=== PATIENT | male | born 1955 | race Caucasian/White ===

== ENCOUNTER 2025-03-09 16:20 | Emergency (ER) | payer OTHER, SELFPAY ==
--- NOTE | 2025-03-09 16:34 | ED.ANIMALBIT ---
HPI - Animal Bite General Chief Complaint: Animal Bite Stated Complaint: left fingers, rt leg, rt arm dog attack Time Seen by Provider: 03/09/25 18:06 Source: patient Limitations: no limitations History of Present Illness ED Provider: Tierney Dorantes PA-C HPI narrative: 69-year-old male who presents emergency department for evaluation of dog bites. He sustained laceration to 3rd digit left hand, right 3rd digit, right wrist, and puncture to right lower leg. Per surgical corsetier, patient's cousin, dog is up-to-date on vaccinations. Patient unaware of date of last tetanus vaccination. Related Data Previous Rx's ?Medication ?Instructions ?Recorded amoxicillin 875 mg-potassium 1 tab PO Q12H #19 tabs 03/09/25 clavulanate 125 mg tablet oxycodone 5 mg tablet 5 mg PO Q6H PRN pain #12 tabs 03/09/25 Allergies Allergy/AdvReac Type Severity Reaction Status Date / Time No Known Allergies Allergy Verified 03/09/25 16:37 Review of Systems Review of Systems: Yes all other systems are reviewed and are negative Constitutional: Constitutional: Denies fatigue and Denies fever(s) Cardiovascular: Cardiovascular: Denies chest pain Musculoskeletal: Musculoskeletal: Reports arthralgias and Reports joint swelling Integumentary/Breasts: Skin/Breast: Reports erythema and Reports wounds Endocrine: Endocrine: Denies fatigue [facility] Past Medical History Attestation statement: The following information was validated with the patient. Social History Social History Advance Directives: No Advance Directives Information Provided: No Physical Exam ED Vital Signs: Vital Signs - 24 hr 03/09/25 16:35 03/09/25 16:51 03/09/25 20:03 Temperature 97.6 F 98.1 F Pulse Rate 91 81 88 Respiratory Rate 18 16 20 Blood Pressure 96/58 L 199/71 H 134/79 Pulse Oximetry 97 98 98 Oxygen Delivery Method Room Air Room Air Room Air BMI result Body Mass Index 30.4 Const Other: Alert Orientation/consciousness: patient oriented x3 Resp Effort & Inspection: normal respiratory effort Cardio Other: Normal peripheral perfusion Skin Other: Warm dry no rash Neuro General: patient oriented x3, gait normal, no focal motor deficits and CN's II-XI intact bilaterally Extrem Other: Multiple wounds noted. Irregular laceration noted over dorsum of right forearm, overall approximately measures 5 cm in length, it is deep to subcu tissue some of the edges are macerated with overlying ecchymosis. 3 cm linear laceration that is superficial over the dorsum of the right 3rd digit, no longer bleeding. Bite wound noted over left hand along the palmar aspect in relation to the left 3rd digit at the MCP, tissue is absent down to subcutaneous tissue, not currently bleeding. Puncture wound noted over lateral right ankle not bleeding. Numerous excoriations from the dog's teeth noted over bilateral hands Psych Other: Cooperative Course Course Course Narrative: This is an RME performed by Leonarda Mackey BARREL ASSEMBLY INSPECTOR: Additional HPI, ROS, PE not included below will be deferred to primary provider. Patient is a 69-year-old male who presents emergency department for evaluation. He sustained bite from a dog to digits of the left hand, right 3rd digit, right wrist, and right lower leg. Per surgical corsetier, damien cousin, dog is up-to-date on vaccinations no recent ill like symptoms. Patient unaware of date of last tetanus vaccination. The dog is typically contained, but he did not verify before entering the home resulted in the Dog attacking him. Near-syncope in triage when attempting to visualize wounds, diaphoretic, nausea, initial BP reading of 96/58 on arrival, patient brought back to main ED bed 23. Consultations Consultation #1: per [facility], she states to place a referral in the office we will reach out to the patient, typically they are seen within a week. Time: 18:33 Medications Administered Discontinued Medications Generic Name Dose Route Start Last Admin Trade Name Freq PRN Reason Stop Dose Admin Amoxicillin/Clavulanate Potassium 875 mg 03/09/25 18:24 03/09/25 19:40 Amoxicillin/Potassium Clav 875 Mg Tablet PO 03/09/25 18:25 875 mg ONCE ONE Administration Diphtheria/Tetanus/Acell Pertussis 0.5 ml 03/09/25 16:47 03/09/25 17:27 Diphth,Pertus(Acell),Tet Adult 0.5 Ml Syringe IM 03/09/25 16:48 Not Given .ONCE ONE Lidocaine/Epinephrine 20 ml 03/09/25 18:24 03/09/25 19:45 Lidocaine Hcl 1%/Epi 1:100,000 20 Ml Vial INFILTRATI 03/09/25 18:25 Not Given ONCE ONE Lidocaine/Epinephrine 20 ml 03/09/25 18:47 03/09/25 19:45 Lidocaine Hcl 1%/Epi 1:100,000 20 Ml Vial INFILTRATI 03/09/25 18:48 Not Given ONCE ONE Oxycodone HCl 10 mg 03/09/25 20:08 03/09/25 20:26 Oxycodone Hcl Immed Release 5 Mg Tablet PO 03/09/25 20:09 10 mg ONCE ONE Administration Medical Decision Making Medical Decision Making MDM Narrative: 69-year-old male who presents emergency department for evaluation of dog bites. He sustained laceration to 3rd digit left hand, right 3rd digit, right wrist, and puncture to right lower leg. Per surgical corsetier, patient's cousin, dog is up-to-date on vaccinations. Patient unaware of date of last tetanus vaccination. No relevant chronic issues History: Per patient I have considered the following differential diagnoses: Bite wound, laceration, excoriation, avulsion Plan: The patient has multiple wounds that need to be repaired, imaging not required. We will place on Augmentin updating tetanus. We will provide the patient with our hand surgeons contact. Lab Data Labs: Lab Results 03/09/25 Range/Units 16:47 POC Glucose 129 H (60-115) mg/dL Procedures Laceration Laceration 1: Site: hand Side (If applicable): right Size (cm): 3 Description: linear Depth: simple, single layer Local Anesthetic: lidocaine 1% and with epi Amount of anesthesia used (mL): 2 Pre-repair: irrigated extensively Skin layer closed with: nylon Size (cm): 4-0 Number of sutures: 7 Technique: simple, interrupted Laceration 2: Site: upper extremity Side (If applicable): right Size (cm): 5 Description: irregular Depth: simple, single layer Local Anesthetic: with epi Amount of anesthesia used (mL): 10 Pre-repair: irrigated extensively Skin layer closed with: nylon Size (cm): 3-0 Number of sutures: 10 Technique: simple, interrupted Discharge Plan Discharge Clinical Impression: Laceration of right forearm, Laceration of finger of right hand, Dog bite of left hand Patient Disposition: Home, Self-Care Instructions: Animal Bite (ED), Laceration (ED), Finger Laceration (ED) Additional Instructions: Ten stitches were used to repair the laceration of the right forearm. Seven stitches were used to repair the wound on the right finger. The stitches can be removed in 7 days, they can either be removed by primary care or you can return to the emergency room for removal. Be sure to take the Augmentin as directed, complete the course of antibiotics. You should take a probiotic, this will help to prevent diarrhea. Take the oxycodone as needed for pain. You can alternate with [id number] Tylenol 1000 mg taken every 8 hours with food. I am providing you with a contact for our hand surgeon, they should reach out to you, but I would call Monday to make an appointment. Prescriptions: New oxycodone 5 mg tablet 5 mg PO Q6H PRN (Reason: pain) Qty: 12 0RF Rx Instructions: Partial Fill upon patient request. amoxicillin-pot clavulanate 875-125 mg tablet 1 tab PO Q12H Qty: 19 0RF Referrals: Tata Benedict MD [Physician] - (dog bite left hand, palmar aspect, large area of tissue absent, deep to subcutaneous layer) Print Language: Kinyarwanda
[2025-03-09 16:35] VITALS: BP 96/58; PULSE 91; RESP 18; TEMP 36.4; O2SAT 97; BMI 30.4
--- NOTE | 2025-03-09 16:48 | ECG_ITS ---
Test Reason : dizzness Blood Pressure : */* mmHG Vent. Rate : 77 BPM Atrial Rate : 77 BPM P-R Int : 196 ms QRS Dur : 106 ms QT Int : 390 ms P-R-T Axes : 62 66 65 degrees QTcB Int : 441 ms Normal sinus rhythm Incomplete right bundle branch block Borderline ECG When compared with ECG of 09-Apr-2011 03:39, No significant changes seen Referred By: Brittni Mackey Electronically Signed By: Phil Domingo
[2025-03-09 16:50] LABS: Glucose, Whole Blood 129 mg/dL (60-115)
[2025-03-09 16:51] VITALS: BP 199/71; PULSE 81; RESP 16; O2SAT 98
--- NOTE | 2025-03-09 16:52 | PC.NURSE ---
while taking down dressings in triage pt became very diaphoretic and pale. stated he might pass out. Was able to maintain consciousness and was placed in stretcher and brought to ED23. Skin returned to PWD and NSR on monitor. wound left 3rd digit is deep and bleeding.
--- NOTE | 2025-03-09 17:10 | PC.NURSE ---
PT bit by cousins [place]ian cattle dog, pt thought dog was in crate when he went inside to go to the bathroom and the dog was not, dog proceeded to attack pt, the dog was an [place] cattle dog of the cousin up to date on shots, PT refused tetanus update because he received it in 2018 and said he would get a new one when due. PT got bit in the left hand, right LE,and right forearm, right hand. Pictures provided below after wounds were cleaned. Right forearm (pic below) Right LE (pic below) Left Hand (pic below) Right Hand (pic below)
[2025-03-09] MEDS: Amoxicillin/Potassium Clav 875 MG TABLET PO (19:40)
[2025-03-09 20:03] VITALS: BP 134/79; PULSE 88; RESP 20; TEMP 36.7; O2SAT 98
[2025-03-09] MEDS: oxyCODONE HCl Immed Release 5 MG TABLET 10 MG PO (20:26)
[2025-03-09 21:38] VITALS: BP 134/79; PULSE 88; RESP 20; TEMP 36.7; O2SAT 98
== END 2025-03-09 21:39 | disposition home or self-care (01) ==
PROVIDERS: Emergency Provider Emergency Medicine; PCP Nurse Practitioner Family
DX: S51.811A Laceration without foreign body of right forearm, initial encounter (principal); S61.213A Laceration without foreign body of left middle finger without damage to nail, initial encounter; S61.212A Laceration without foreign body of right middle finger without damage to nail, initial encounter; S81.831A Puncture wound without foreign body, right lower leg, initial encounter; I45.10 Unspecified right bundle-branch block; R42 Dizziness and giddiness; R94.31 Abnormal electrocardiogram [ECG] [EKG]; W54.0XXA Bitten by dog, initial encounter; Y93.9 Activity, unspecified; Y92.9 Unspecified place or not applicable; Y99.8 Other external cause status
CPT/HCPCS: 12004; 82947; 93005; 99284

== ENCOUNTER → 2025-03-09 16:48 | Outpatient (BNV) | payer SELFPAY | PROVIDERS: Emergency Provider Emergency Medicine; PCP Nurse Practitioner Family; Visit Provider Internal Medicine Cardiovascular Disease | DX: I45.10 Unspecified right bundle-branch block (principal) | CPT/HCPCS: 93010 ==

== ENCOUNTER 2025-03-12 09:33 | Outpatient (AMB) | payer MEDICARE, SELFPAY ==
[2025-03-12 09:53] VITALS: BMI 30.3
--- NOTE | 2025-03-12 09:53 | MHC.OFFVIS ---
Vital Signs 03/12/25 09:53 Height 5 ft 8 in Weight 199 lb BMI 30.3 Intake Visit Reasons: ED Follow up RT forearm,finger laceration Intake Note: Jimy is a 69 year old right hand dominant male who presents today for a Emergency Room follow up of his Right wrist and Right Middle Finger. Patient reports that he was attacked by a dog on Monday03/09/25. Patient reports that he was attacked by a dog which affected his right wrist , right middle and pointer fingers as well as left middle and ring finger and right lower extremity. He was seen at [facility] after the incident where he relieved sutures to the wrist and middle finger. There is a chunk of the finger missing that was irrigated and dressed with antibiotic pad. He was placed on Abx in the ED - Amoxicillin which he is currently taking. He is also taking Oxycodone 5mg which is helping his pain. Denies numbness and tingling. Allergies No Known Allergies Allergy (Verified 03/12/25 09:59) HPI HPI ED Follow up RT forearm,finger laceration: Details: Jimy is a 69 year old right hand dominant male who presents today for a Emergency Room follow up of his Right wrist and Right Middle Finger. Patient reports that he was attacked by a dog on Monday03/09/25. Patient reports that he was attacked by a dog which affected his right wrist , right middle and pointer fingers as well as left middle and ring finger and right lower extremity. He was seen at [facility] ED after the incident where he relieved sutures to the wrist and middle finger. There is a chunk of the finger missing that was irrigated and dressed with antibiotic pad. He was placed on Abx in the ED - Amoxicillin which he is currently taking. He is also taking Oxycodone 5mg which is helping his pain. Denies numbness and tingling. [facility] Social History (Updated 03/12/25 @ 10:00 by Catie Villeda CMA) Current occupational status: retired Review of Systems Const All systems reviewed & are unremarkable except as noted in HPI and below Physical Exam Vital Signs: BMI result Body Mass Index 30.3 Extrem Other: Patient is alert, oriented, and in no acute distress. Neuro: Normal sensation of the tips of all digits of bilateral hands Vascular: Cap refill brisk Pain: Tenderness to palpation about laceration and wound sites Some pain with range of motion of bilateral hands ROM: Patient is able to make a closed fist with the right hand and extend all digits of the right hand fully and without difficulty Some limited range of motion of the left hand, primarily the middle finger, secondary to large area of skin loss over the volar proximal phalanx of the left middle finger. However, patient is able to actively flex and extend at all joints of the digits of the left hand Skin: Well approximated and well healing laceration on right forearm dorsal aspect Large area of skin loss noted over the proximal volar phalanx of the left middle finger Small abrasions noted on the distal and ulnar aspect of the left ring finger, there is noted to be a little bit of purulent drainage from the most distal aspect with mild surrounding erythema Small abrasions noted on both the middle and ring fingers of the right hand, no redness, drainage, or evidence of infection Psych: Appears grossly normal Affect normal Attitude cooperative Assessment & Plan Assessment & Plan (1) Dog bite of left hand: Code(s): S61.452A - Open bite of left hand, initial encounter; W54.0XXA - Bitten by dog, initial encounter Category: Medical (2) Laceration of finger of right hand: Code(s): S61.219A - Laceration without foreign body of unspecified finger without damage to nail, initial encounter Category: Medical (3) Laceration of right forearm: Code(s): S51.811A - Laceration without foreign body of right forearm, initial encounter Category: Medical Plan 1. Dog bite to both hands With significant skin loss to volar left middle finger Evidence of infection of small laceration on left ring finger Patient is educated about this condition Patient is educated about the typical recovery course Dr. Benedict is available to see the patient with me in clinic today, and a collaborative treatment plan was formed: At this time, small laceration on left ring finger is reopened to allow drainage of any purulence that has accumulated At this time, Dr. Benedict does not feel that skin graft is necessary, and that the wound may heal on its own However, it may be necessary if the wound does not begin to show evidence of healing Antibiotics refilled Patient is advised on daily dressing changes with Xeroform, antibiotic ointment Patient is advised that he should wash the area with soap and water in the sink or shower Follow-up early next week for wound check Medications: Refilled amoxicillin-pot clavulanate 875-125 mg 1 tab PO Q12H 20 tabs 0RF amoxicillin-pot clavulanate 875-125 mg 1 tab PO Q12H 20 tabs 0RF Coding Level of Care Code New Pt Level 3 (20061) Complex EM visit Add On G2211 Diagnoses Dog bite of left hand S61.452A; W54.0XXA Laceration of finger of right hand S61.219A Laceration of right forearm S51.811A
--- OUTSIDE RECORDS SUMMARY | 2025-03-12 10:15 | XMS_ITS | Clinical Summary ---
Author Organization [facility] ity Address [id number] [place] [id number] Care Team Providers Care Baggage Handling Supervisor Name Role Phone Unavailable Primary Care Provider Unavailabl e Social History Tobacco Use Types Packs/Day Years Used Date Smoking Tobacco: Never Assessed Sex and Gender Information Value Date Recorded Sex Assigned at Not on file Legal Sex Male 8:05 AM EST Gender Identity Not on file Sexual Orientation Not on file Plan of Treatment Health Maintenance Due Date Last Done Comments DTaP,Tdap,and Td Vaccines (1 - Tdap) 1976 Pneumococcal Vaccine: 50+ Ye ars (1 of 1 - PCV) 2007 Zoster Vaccines (1 of 2) 2007 Abdominal Aortic Aneurysm (A AA) Screen 06/11/2024 Cholesterol Screening (Lipid Panel) 06/11/2024 Colorectal Cancer Screening: Colonoscopy 06/11/2024 Depression Screening 06/11/2024 Falls Risk Assessment 06/11/2024 Hepatitis C Screening 06/11/2024 Social Influencers of Health Screening 06/11/2024 COVID-19 Vaccine (1 - 2023-2 5 season) 2024 Influenza Vaccine (Season Ended) 2025 RSV Immunization Adult Patie nts (1 - 1-dose 75+ series) 2032 HIB Vaccines Aged Out No longer eligi ble based on patient's age to complete this topic HPV Vaccines Aged Out No longer eligi ble based on patient's age to complete this topic Hepatitis A Vaccines Aged Out No long er eligible based on patient's age to complete this topic Hepatitis B Vaccines Aged Out No long er eligible based on patient's age to complete this topic IPV Vaccines Aged Out No longer eligi ble based on patient's age to complete this topic MMR Vaccines Aged Out No longer eligi ble based on patient's age to complete this topic Meningococcal ACWY Vaccine Aged Out N o longer eligible based on patient's age to complete this topic Meningococcal B Vaccine Aged Out No l onger eligible based on patient's age to complete this topic RSV Immunization Patients Un ericka 20 months Aged Out No longer eligible b ased on patient's age to complete this topic Varicella Vaccines Aged Out No longer eligible based on patient's age to complete this topic
== END 2025-03-12 11:50 | disposition home or self-care (01) ==
LOC: HO.HOS 09:33
PROVIDERS: PCP Nurse Practitioner Family
DX: S61.452A Open bite of left hand, initial encounter (principal); W54.0XXA Bitten by dog, initial encounter; S61.219A Laceration without foreign body of unspecified finger without damage to nail, initial encounter; S51.811A Laceration without foreign body of right forearm, initial encounter
CPT/HCPCS: 99203; G2211

== ENCOUNTER → 2025-03-12 09:33 | Outpatient (BNVA) | payer MEDICARE, SELFPAY | PROVIDERS: PCP Nurse Practitioner Family | DX: S61.452D Open bite of left hand, subsequent encounter (principal); S61.212D Laceration without foreign body of right middle finger without damage to nail, subsequent encounter; S51.811D Laceration without foreign body of right forearm, subsequent encounter; W54.0XXD Bitten by dog, subsequent encounter; Z79.2 Long term (current) use of antibiotics; Z79.891 Long term (current) use of opiate analgesic | CPT/HCPCS: 99202 ==

== ENCOUNTER 2025-03-18 08:48 | Outpatient (AMB) | payer MEDICARE, SELFPAY ==
[2025-03-18 08:57] VITALS: BMI 30.3
--- NOTE | 2025-03-18 08:57 | A.OFFVIS_ITS ---
Vital Signs 03/18/25 08:57 Height 5 ft 8 in Weight 199 lb BMI 30.3 Intake Visit Reasons: OV- R wrist, R Fingers Lac DOI 03/09/25 Intake Note: Jimy 69 yr old male presents today for his follow up visit for his right arm, ring finger and middle finger laceration s/p dog bite from 03/09/25 for his removal of sutures. States he is doing well and is ready to have his sutures removed. Allergies No Known Allergies Allergy (Verified 03/18/25 09:02) HPI HPI OV- R wrist, R Fingers Lac DOI 03/09/25: Details: Jimy is a 69 year old right hand dominant man who presents for a follow up of his bilateral hand dog bite wounds, DOI: 03/09/25. He sustained bites to bilateral hands, the right forearm, and his lower extremity. His right hand & forearm were sutured in the ED. He is here for a wound check & suture removal. He says he is doing better, continues to have some pain & itching where his fingers are healing. He has been taking his Abx as instructed, and performing dressing changes at home, as instructed. He says his sensation is normal to all digits. ON LICENSE OF [facility] Medical History (Updated 03/18/25 @ 09:09 by Jose Bobby) Infection of left hand due to bite Social History Current occupational status: retired Review of Systems Const All systems reviewed & are unremarkable except as noted in HPI and below Physical Exam Vital Signs: BMI result Body Mass Index 30.3 Const General: cooperative, healthy appearing and no acute distress Orientation/consciousness: patient oriented x3 HEENT Head: Yes normocephalic and Yes atraumatic Eyes EOM: EOMs intact bilaterally Resp Effort & Inspection: normal respiratory effort and able to speak in complete sentences Cardio Jugular venous distension: no JVD Skin General skin exam: turgor normal Rashes: no rashes Neuro General: patient oriented x3 Extrem Other: Evaluation of Bilateral Upper Extremity: The patient is alert, oriented, and in no acute distress Neuro: Median, Ulnar, Radial nerves motor and sensory intact and sensation is normal to the tips of all digits Vascular: Cap refill brisk ROM: He can make a fist and extend all his digits of his right hand Some limited ROM of the left hand, primarily the middle finger, secondary to large area of skin loss over the volar proximal phalanx of the left middle finger. However, patient is able to actively flex and extend at all joints of the digits of the left hand Skin: Well approximated and well healing laceration on right forearm dorsal aspect, measuring ~4cm in length, some sutures removed today. Mild erythema, improving swelling, no drainage. ~2*2cm area of skin loss over the palmar proximal volar phalanx of the left middle finger, C/D/I Small abrasions noted on the distal and ulnar aspect of the left ring finger, there is noted to be a little bit of purulent drainage from the most distal aspect with mild surrounding erythema Small abrasions noted on both the middle and ring fingers of the right hand, no redness, drainage, or evidence of infection Some sutures removed from right dorsal middle finger, just distal to the PIP joint. Psych Appearance: grossly normal Affect: normal affect Attitude: cooperative Assessment & Plan Assessment & Plan (1) Dog bite of multiple sites of right hand and fingers: Code(s): S61.451A - Open bite of right hand, initial encounter; S61.259A - Open bite of unspecified finger without damage to nail, initial encounter; W54.0XXA - Bitten by dog, initial encounter Category: Medical (2) Dog bite of left hand: Code(s): S61.452A - Open bite of left hand, initial encounter; W54.0XXA - Bitten by dog, initial encounter Category: Medical (3) Laceration of finger of right hand: Code(s): S61.219A - Laceration without foreign body of unspecified finger without damage to nail, initial encounter Category: Medical (4) Laceration of right forearm: Code(s): S51.811A - Laceration without foreign body of right forearm, initial encounter Category: Medical Plan Assessment & Plan: 1. Right index & middle finger dog bites DOI: 03/09/25 Sutured in ED same day 2. Right wrist/forearm dog bite DOI: 03/09/25 Sutured in ED same day 3. Left middle & ring finger dog bites DOI: 03/09/25 Area of 2 x 2 cm full-thickness skin loss volar aspect of middle finger distal 2 palmar digital crease I educated him about these conditions I discussed operative and non-operative treatment options, he may benefit from a possible skin graft in the future, and he expressed understanding His sensation is intact & normal to all digits I explained the signs and symptoms of infection, if the patient develops any new or worsening erythema, drainage, pain, or warmth they should contact the clinic or attend the ED. He will continue to take his Abx as instructed. We talked about wound care. He should stop cleaning his wounds with peroxide, and just use soapy water. He will perform daily dressing changes at home as instructed I discussed activity modifications, he is to lift nothing heavier than a cellphone for the next 6 weeks He will perform gentle ROM exercises at home He will follow up next Monday for a wound check, with me. We are considering possible skin grafting of the left middle finger wound versus allowing the wound to heal in on its own. Scribed for Tata Benedict MD by Jose Bobby, medical information officer, on 03/18/25 at 9:10 AM, EST. Coding Level of Care Code Est Pt Level 3 (46847) Diagnoses Dog bite of multiple sites of right hand and fingers S61.451A; S61.259A; W54.0XXA Dog bite of left hand S61.452A; W54.0XXA Laceration of finger of right hand S61.219A Laceration of right forearm S51.811A
--- OUTSIDE RECORDS SUMMARY | 2025-03-18 09:22 | XMS_ITS | Clinical Summary ---
Author Organization [facility] ity Address [id number] [place] [id number] Care Team Providers Care Orthotist/Prosthetist Name Role Phone Unavailable Primary Care Provider [...]
== END 2025-03-18 09:49 | disposition home or self-care (01) ==
LOC: HO.HOS 08:49
PROVIDERS: PCP Nurse Practitioner Family; Visit Provider Orthopaedic Surgery
DX: S61.451A Open bite of right hand, initial encounter (principal); S61.253A Open bite of left middle finger without damage to nail, initial encounter; W54.0XXA Bitten by dog, initial encounter; S61.452A Open bite of left hand, initial encounter; S61.211A Laceration without foreign body of left index finger without damage to nail, initial encounter; S51.811A Laceration without foreign body of right forearm, initial encounter
CPT/HCPCS: 99213

== ENCOUNTER → 2025-03-18 08:48 | Outpatient (BNVA) | payer MEDICARE, SELFPAY | PROVIDERS: PCP Nurse Practitioner Family; Visit Provider Orthopaedic Surgery | DX: S61.451D Open bite of right hand, subsequent encounter (principal); S61.452D Open bite of left hand, subsequent encounter; S61.250D Open bite of right index finger without damage to nail, subsequent encounter; S61.252D Open bite of right middle finger without damage to nail, subsequent encounter; S61.255D Open bite of left ring finger without damage to nail, subsequent encounter; S61.253D Open bite of left middle finger without damage to nail, subsequent encounter; S61.551D Open bite of right wrist, subsequent encounter; S51.851D Open bite of right forearm, subsequent encounter; W54.0XXD Bitten by dog, subsequent encounter | CPT/HCPCS: 99212 ==

== ENCOUNTER 2025-03-26 14:15 | Outpatient (AMB) | payer MEDICARE, SELFPAY ==
--- NOTE | 2025-03-26 14:25 | A.OFFVIS_ITS ---
Vital Signs 03/26/25 14:45 Height 5 ft 8 in Weight 199 lb BMI 30.3 Intake Visit Reasons: OV- Wound Check R wrist, R [place] DOI 03/09/25 Intake Note: Jimy is a 69 year old right hand dominant male who presents today for a follow up visit and wound check for his right index & middle finger, right wrist/forearm dog bite, left middle & ring finger dog bites DOI: 03/09/25. Allergies No Known Allergies Allergy (Verified 03/26/25 14:46) HPI HPI OV- Wound Check R wrist, R [place] DOI 03/09/25: Details: Jimy is a 69 year old right hand dominant man who presents for a follow up of his bilateral hand dog bite wounds, DOI: 03/09/25. He sustained bites to bilateral hands, the right forearm, and his lower extremity. His right hand & forearm were sutured in the ED. He is here for a wound check & suture removal. He says he is doing better. He has been taking his Abx as instructed, and performing dressing changes at home, as instructed. He says his sensation is normal to all digits. [facility] Medical History (Updated 03/18/25 @ 09:09 by Jose Bobby) Infection of left hand due to bite Social History Current occupational status: retired Physical Exam Vital Signs: BMI result Body Mass Index 30.3 Extrem Other: Evaluation of Bilateral Upper Extremity: The patient is alert, oriented, and in no acute distress Neuro: Median, Ulnar, Radial nerves motor and sensory intact and sensation is normal to the tips of all digits Vascular: Cap refill brisk ROM: He can make a fist and extend all his digits of his right hand Some limited ROM of the left hand, primarily the middle finger, secondary to large area of skin loss over the volar proximal phalanx of the left middle finger. However, patient is able to actively flex and extend at all joints of the digits of the left hand, and bring the tips of all digits ~2cm from his palm Skin: Well approximated and well healed laceration on right forearm dorsal aspect, measuring ~4cm in length, remaining sutures removed today. No erythema, swelling, or drainage. ~2*2cm area of skin loss over the palmar proximal volar phalanx of the left middle finger, C/D/I, now with good granulation tissue \All other wounds mentioned previously appear to be healing well and with no evidence of infection. Assessment & Plan Assessment & Plan (1) Dog bite of multiple sites of right hand and fingers: Code(s): S61.451A - Open bite of right hand, initial encounter; S61.259A - Open bite of unspecified finger without damage to nail, initial encounter; W54.0XXA - Bitten by dog, initial encounter Category: Medical (2) Dog bite of left hand: Code(s): S61.452A - Open bite of left hand, initial encounter; W54.0XXA - Bitten by dog, initial encounter Category: Medical (3) Laceration of finger of right hand: Code(s): S61.219A - Laceration without foreign body of unspecified finger without damage to nail, initial encounter Category: Medical (4) Laceration of right forearm: Code(s): S51.811A - Laceration without foreign body of right forearm, initial encounter Category: Medical Plan Assessment & Plan: 1. Right index & middle finger dog bites DOI: 03/09/25 Sutured in ED same day 2. Right wrist/forearm dog bite DOI: 03/09/25 Sutured in ED same day 3. Left middle & ring finger dog bites DOI: 03/09/25 Area of 2 x 2 cm full-thickness skin loss volar aspect of middle finger distal to the palmar digital crease I educated him about these conditions I discussed operative and non-operative treatment options, he may benefit from a possible skin graft in the future, and he expressed understanding. We talked about possible skin grafting. It would mean immobilizing his finger to prevent motion of the graft site. I believe this is a good chance that we can get this to heal in well within a reasonable amount of time without skin grafting. His sensation is intact & normal to all digits I explained the signs and symptoms of infection, if the patient develops any new or worsening erythema, drainage, pain, or warmth they should contact the clinic or attend the ED. he will continue his Abx as instructed until completed He will perform daily dressing changes at home as instructed I discussed activity modifications, he is to lift nothing heavier than a cellphone for the next 5 weeks He will perform gentle ROM exercises at home He will follow up in 3 weeks for a wound check, with RICHARD Maldonado. Scribed for Tata Benedict MD by Jose Bobby, director of medical review, on 03/26/25 at 2:55 PM, EST. Coding Level of Care Code Est Pt Level 4 (78448) Diagnoses Dog bite of multiple sites of right hand and fingers S61.451A; S61.259A; W54.0XXA Dog bite of left hand S61.452A; W54.0XXA Laceration of finger of right hand S61.219A Laceration of right forearm S51.811A
[2025-03-26 14:45] VITALS: BMI 30.3
--- OUTSIDE RECORDS SUMMARY | 2025-03-26 16:20 | XMS_ITS | Clinical Summary ---
Author Organization [facility] ity Address [address] [id number] Care Team Providers Care Teller Vault Name Role Phone Unavailable Primary Care Provider [...]
== END 2025-03-26 15:06 | disposition home or self-care (01) ==
LOC: HO.HOS 14:15
PROVIDERS: PCP Nurse Practitioner Family; Visit Provider Orthopaedic Surgery
DX: S61.451A Open bite of right hand, initial encounter (principal); S61.259A Open bite of unspecified finger without damage to nail, initial encounter; W54.0XXA Bitten by dog, initial encounter; S61.452A Open bite of left hand, initial encounter; S61.219A Laceration without foreign body of unspecified finger without damage to nail, initial encounter; S51.811A Laceration without foreign body of right forearm, initial encounter
CPT/HCPCS: 99214

== ENCOUNTER → 2025-03-26 14:15 | Outpatient (BNVA) | payer MEDICARE, SELFPAY | PROVIDERS: PCP Nurse Practitioner Family; Visit Provider Orthopaedic Surgery | DX: S61.451D Open bite of right hand, subsequent encounter (principal); S61.259D Open bite of unspecified finger without damage to nail, subsequent encounter; S61.452D Open bite of left hand, subsequent encounter; S61.219D Laceration without foreign body of unspecified finger without damage to nail, subsequent encounter; S51.811D Laceration without foreign body of right forearm, subsequent encounter; W54.0XXD Bitten by dog, subsequent encounter | CPT/HCPCS: 99212 ==

== ENCOUNTER 2025-04-17 10:06 | Outpatient (AMB) | payer MEDICARE, SELFPAY ==
[2025-04-17 10:11] VITALS: BMI 30.3
--- NOTE | 2025-04-17 10:11 | A.OFFVIS_ITS ---
Vital Signs 04/17/25 10:11 Height 5 ft 8 in Weight 199 lb BMI 30.3 Intake Visit Reasons: OV- Wound Check R wrist, R [place] DOI 03/09/25 Intake Note: Jimy is a 69 year old right hand dominant man who presents for a follow up and wound check of his bilateral hand dog bite wounds, DOI: 03/09/25. Patient presents today for a wound and ROM check. States its healinf nicly howvere he is still limited ROM and is not able to make a close fist. Allergies No Known Allergies Allergy (Verified 04/17/25 10:14) HPI HPI OV- Wound Check R wrist, R [place] DOI 03/09/25: Details: Jimy is a 69 year old right hand dominant man who presents for a follow up and wound check of his bilateral hand dog bite wounds, DOI: 03/09/25. Patient presents today for a wound and ROM check. States its healing well, however he is still limited ROM and is not able to make a tight close fist. Patient reports no ongoing concerns for potential infection. [facility] Medical History (Updated 03/18/25 @ 09:09 by Jose Bobby) Infection of left hand due to bite Social History Current occupational status: retired Review of Systems Const All systems reviewed & are unremarkable except as noted in HPI and below Physical Exam Vital Signs: BMI result Body Mass Index 30.3 Extrem Other: Evaluation of Bilateral Upper Extremity: The patient is alert, oriented, and in no acute distress Neuro: Median, Ulnar, Radial nerves motor and sensory intact and sensation is normal to the tips of all digits Vascular: Cap refill brisk ROM: He can make a fist and extend all his digits of his right hand Some limited ROM of the left hand, primarily the middle finger, improved from previous visit However, patient is able to actively flex and extend at all joints of the digits of the left hand, and bring the tips of all digits ~2cm from his palm Skin: Well approximated and well healed laceration on right forearm dorsal aspect, measuring ~4cm in length, remaining sutures removed today. No erythema, swelling, or drainage. ~2*2cm area of skin loss over the palmar proximal volar phalanx of the left middle finger, C/D/I, now with good granulation tissue and skin growth \All other wounds mentioned previously appear to be healing well and with no evidence of infection. Assessment & Plan Assessment & Plan (1) Dog bite of multiple sites of right hand and fingers: Code(s): S61.451A - Open bite of right hand, initial encounter; S61.259A - Open bite of unspecified finger without damage to nail, initial encounter; W54.0XXA - Bitten by dog, initial encounter Category: Medical (2) Dog bite of left hand: Code(s): S61.452A - Open bite of left hand, initial encounter; W54.0XXA - Bitten by dog, initial encounter Category: Medical (3) Laceration of finger of right hand: Code(s): S61.219A - Laceration without foreign body of unspecified finger without damage to nail, initial encounter Category: Medical (4) Laceration of right forearm: Code(s): S51.811A - Laceration without foreign body of right forearm, initial encounter Category: Medical Plan Assessment & Plan: 1. Right index & middle finger dog bites DOI: 03/09/25 Sutured in ED same day 2. Right wrist/forearm dog bite DOI: 03/09/25 Sutured in ED same day 3. Left middle & ring finger dog bites DOI: 03/09/25 Area of 2 x 2 cm full-thickness skin loss volar aspect of middle finger distal to the palmar digital crease I educated him about these conditions I discussed operative and non-operative treatment options, he may benefit from a possible skin graft in the future, and he expressed understanding. We talked about possible skin grafting. It would mean immobilizing his finger to prevent motion of the graft site. I believe this is a good chance that we can get this to heal in well within a reasonable amount of time without skin grafting. His sensation is intact & normal to all digits I explained the signs and symptoms of infection, if the patient develops any new or worsening erythema, drainage, pain, or warmth they should contact the clinic or attend the ED. he will continue his Abx as instructed until completed He will perform daily dressing changes at home as instructed I discussed activity modifications, can gradually begin returning to full normal lifting over the next 4-6 weeks He will perform gentle ROM exercises at home He will follow up as needed with any acute concerns Scribed for Tata Benedict MD by Jose Bobby, medical library assistant, on 03/26/25 at 2:55 PM, EST. Coding Level of Care Code Est Pt Level 3 (36566) Diagnoses Dog bite of multiple sites of right hand and fingers S61.451A; S61.259A; W54.0XXA Dog bite of left hand S61.452A; W54.0XXA Laceration of finger of right hand S61.219A Laceration of right forearm S51.811A
--- OUTSIDE RECORDS SUMMARY | 2025-04-17 10:48 | XMS_ITS | Clinical Summary ---
Author Organization [facility] [address] [facility] Address [address] [place] [address] Phone Care Team Providers Care Planer Stone Name Role Phone Constanza Rizo NP Primary Care Provider [phone] Allergies No known active allergies Medications acetaminophen (TYLENOL) 325 mg tablet Take by mouth every 6 (six) hours if needed for mild pain. Active atorvastatin (LIPITOR) 40 mg tablet Take 1 tablet (40 mg total) by mouth at bedtime. Active FLUoxetine (PROzac) 20 mg capsule Take 1 capsule (20 mg total) by mouth 1 (one) time each day. Active multivitamin tablet Take 1 tablet by mouth 1 (one) time each day. Active cholecalciferol (VITAMIN D-3) 1,250 mcg (50,000 unit) capsule Take 1 capsule (50,000 Units total) by mouth 1 (one) time per week. Active Encounters Date Type Department Care Team Description 04/10/2025 Telephone Gastroenterology - [address] [address] Saul Lopes MD SPECIAL PROCEDURE--POSITIVE COLOGUARD from Last 3 Months Social History Tobacco Use Types Packs/Day Years Used Date Smoking Tobacco: Never Assessed Sex and Gender Information Value Date Recorded Sex Assigned at Not on file Legal Sex Male 8:05 AM EST Gender Identity Not on file Sexual Orientation Not on file Plan of Treatment Upcoming Encounters Date Type Department Care Team ([facility] st Contact Info) Description 05/15/2025 3:00 PM EDT Hospital Encounter [facility] [address] [place] [address] Saul Lopes MD [address] [facility] [address] [place] [address] Health Maintenance Due Date Last Done Comments DTaP,Tdap,and Td Vaccines (1 - Tdap) 1976 Pneumococcal Vaccine: 50+ Ye ars (1 of 1 - PCV) 2007 Zoster Vaccines (1 of 2) 2007 Abdominal Aortic Aneurysm (A AA) Screen 06/11/2024 Cholesterol Screening (Lipid Panel) 06/11/2024 Colorectal Cancer Screening: Colonoscopy 06/11/2024 Depression Screening 06/11/2024 Falls Risk Assessment 06/11/2024 Hepatitis C Screening 06/11/2024 Medicare Annual Wellness Visit 06/11/2024 Social Influencers of Health Screening 06/11/2024 COVID-19 Vaccine ( - 2023-2 5 season) 2024 Influenza Vaccine [...] on patient's age to complete this topic Insurance [employer] MEDICARE Care Teams Planer Stone Relationship Specialty Start Date End Date Constanza Rizo NP [address] [facility] [place] [facility] [place] [id number] PCP - General Nurse Practitioner 04/10/25
== END 2025-04-17 10:29 | disposition home or self-care (01) ==
LOC: HO.HOS 10:07
PROVIDERS: PCP Nurse Practitioner Family
DX: S61.451A Open bite of right hand, initial encounter (principal); S61.259A Open bite of unspecified finger without damage to nail, initial encounter; W54.0XXA Bitten by dog, initial encounter; S61.452A Open bite of left hand, initial encounter; S61.219A Laceration without foreign body of unspecified finger without damage to nail, initial encounter; S51.811A Laceration without foreign body of right forearm, initial encounter
CPT/HCPCS: 99213

== ENCOUNTER → 2025-04-17 10:06 | Outpatient (BNVA) | payer MEDICARE, SELFPAY | PROVIDERS: PCP Nurse Practitioner Family | DX: S61.230D Puncture wound without foreign body of right index finger without damage to nail, subsequent encounter (principal); S61.232D Puncture wound without foreign body of right middle finger without damage to nail, subsequent encounter; S61.23 Puncture wound without foreign body of finger without damage to nail; S61.233D Puncture wound without foreign body of left middle finger without damage to nail, subsequent encounter; S51.811D Laceration without foreign body of right forearm, subsequent encounter; S61.531D Puncture wound without foreign body of right wrist, subsequent encounter; S61.431D Puncture wound without foreign body of right hand, subsequent encounter; W54.0XXD Bitten by dog, subsequent encounter | CPT/HCPCS: 99212 ==